=== PATIENT | male | born 1985 | race Caucasian/White ===

== ENCOUNTER 2017-03-07 10:55 | Outpatient (CLI) ==
[2017-03-07 11:23] LABS: BILIRUBIN,URINE Negative (NEGATIVE); KETONES,URINE Negative (NEGATIVE); LEUKOCYTE ESTERASE ,URINE Negative (NEGATIVE); NITRITE,URINE Negative (NEGATIVE); PH,URINE 8.5 (5-9); PROTEIN,URINE Negative (NEGATIVE); URINE, BLOOD Negative (NEGATIVE)
[2017-03-07 11:26] LABS: ADD URINE MICROSCOPIC NO
--- NOTE | 2017-03-07 11:44 | CT ---
EXAM: CT ABDOMEN AND PELVIS HISTORY: Abdominal pain, right flank pain for about 2 months TECHNIQUE: CT abdomen and pelvis without intravenous contrast. Images were reconstructed using 3 mm section thickness. Reformations were prepared. COMPARISON: None FINDINGS: Liver and spleen appear normal within limits of this unenhanced exam. Gallbladder, pancreas and adre nal glands appear normal. There is no hydronephrosis or nephrolithiasis. No perinephric fat strandi ng or evidence of ureteral obstruction. Normal abdominal aorta. Stomach appears normal. Normal appendix. General bowel gas pattern and appearance is normal. Urina ry bladder and prostate are unremarkable. There is no ascites. No ventral abdominal wall hernia. Transitional vertebral body anatomy at the lumbosacral junction. Lung bases are clear. No pneumoperitoneum. IMPRESSION: Kidneys and ureters appear normal. Normal appendix and general bowel gas pattern. No a cute abdominal or pelvic abnormality identified.
== END 2017-03-07 10:56 | disposition home or self-care (01) ==
LOC: RAD 10:55
PROVIDERS: ATTEND Nurse Practitioner Family
DX: R10.9 Unspecified abdominal pain (principal); R30.0 Dysuria
CPT/HCPCS: 74176; 81001

== ENCOUNTER 2017-03-10 08:11 | Outpatient (CLI) ==
--- NOTE | 2017-03-10 10:29 | NM ---
EXAM: Hepatobiliary imaging HISTORY: Generalized abdominal pain COMPARISON: Right upper quadrant ultrasound on 03/01/2017 was unremarkable. TECHNIQUE: Patient was injected 5.1 mCi of technetium 99m Choletec intravenously. Multiple anterior scintigraphic images of the right upper quadrant region of the abdomen were obtained up to 1 hour int erval. Patient was infused 1.5 mcg of cholecystokinin intravenously. Gallbladder ejection fraction was calculated. FINDINGS: There is normal visualization of liver, gallbladder and bile duct. Gallbladder ejection fr action is 98%. IMPRESSION: Normal study
== END 2017-03-10 08:12 | disposition home or self-care (01) ==
LOC: RAD 08:11
PROVIDERS: ATTEND Nurse Practitioner Family
DX: R10.84 Generalized abdominal pain (principal); R11.2 Nausea with vomiting, unspecified; K21.9 Gastro-esophageal reflux disease without esophagitis

== ENCOUNTER 2017-06-21 07:37 | Outpatient (CLI) ==
--- NOTE | 2017-06-21 10:59 | NM ---
EXAM: Hepatobiliary scan HISTORY: Pain. COMPARISON: 03/10/2017. CT 03/07/2017. PROCEDURE: The patient was injected with 5.2 mCi of 99mTc mebrofenin intravenously. Images of the ab domen were obtained at 5 min intervals for 30 minutes. Additional images were obtained 45 minutes an d 1 hour. The patient was then given 8 ounces of Boost after which images of the gallbladder were obt ained to assess gallbladder contraction. FINDINGS: Sequential images demonstrate normal uptake of tracer into the liver. Activity is seen in the intrahepatic biliary ducts at about 5 minutes. The activity appears in the gallbladder at about 20 minutes. Subsequent images demonstrate increasing activity in the gallbladder. Activity first ap pears in the small bowel at 10 minutes. The gallbladder ejection fraction is 63% . IMPRESSION: 1.Normal hepatobiliary scan. 2.The gallbladder ejection fraction is 63% (normal).
== END 2017-06-21 07:38 | disposition home or self-care (01) ==
LOC: RAD 07:37
PROVIDERS: ATTEND Internal Medicine Gastroenterology
DX: R10.84 Generalized abdominal pain (principal)

== ENCOUNTER 2018-01-21 23:33 | Emergency (ER) | payer OTHER ==
[2018-01-21 23:41] VITALS: TEMP 97.4; BMI 24.6
[2018-01-21] MEDS ORDERED: STADOL IM STA (23:53)
[2018-01-21] MEDS ORDERED: PHENERGAN 25 MG/ML VIAL IM STA (23:53)
[2018-01-21] MEDS ORDERED: TORADOL IM STA (23:54)
--- NOTE | 2018-01-22 00:10 | ED.PDOC ---
General ED Provider: Dr. CASANDRA WHELAN-ER Chief Complaint: Headache Stated Complaint: emeli got one of my migraines---emeli had them since i was a teenager Time Seen by Physician: 23:40 Mode of Arrival: Walk-In Information Source: Patient Exam Limitations: No limitations Nursing and Triage Documentation Reviewed and Agree: Yes Does patient meet sepsis criteria?: No System Inflammatory Response Syndrome: Not Applicable Sepsis Protocol: For patient's 13 years and over: Temp is 96.8 and below OR 101 and greater Pulse >90 BPM Resp >20/minute Acutely Altered Mental Status Are patient's symptoms suggestive of a new infection, such as: -Pneumonia -Skin, Soft Tissue -Endocarditis -UTI -Bone, Joint Infection -Implantable Device -Acute Abdominal Infection -Wound Infection -Meningitis -Blood Stream Catheter Infection -Unknown Neurological Complaint Exam - Headache Complaint/Exam Onset: Gradual Duration: 3 hrs Symptoms Are: Still present Timing: Constant Worst Headache Ever: No Initial Severity: Mild Current Severity: Moderate Location: Diffuse, Temporal Character: Reports: Throbbing, Pressure, Migraine Alleviating: Reports: None Associated Signs and Symptoms: Reports: Nausea, Vomiting Related History: Reports: Similar episode. Denies: Recent trauma, Remote trauma Related Surgical History: Reports: None SDH Risk Factors: Reports: Male Temporal Arteritis Risk Factors: Reports: Normal Head CT Within Last 12 Months: Yes Fundoscopic Exam: Present: Normal Findings Papilledema Present: No Temporal Artery Tenderness: Present: None Sinus Tenderness: Present: None TMJ Tenderness: Present: None Glascow Coma Scale (see protocol): 15 Meningeal Signs Positive: No Pain on Passive Flexion-Positive Kernig's: No ROM Limited In: No Limitiations Focal Weakness: Present: None Focal Sensory Loss: Present: None Gait: Normal Nystagmus Present: No Gag Reflex Present: No Romberg Test Positive: No Babinski Sign: Negative Right, Negative Left Heel to Toe Normal: Yes Differential Diagnoses: Migraine Review of Systems - Review Of Systems Constitutional: Reports: No symptoms Eyes: Reports: No symptoms Ears, Nose, Mouth, Throat: Reports: No symptoms Respiratory: Reports: No symptoms Cardiac: Reports: No symptoms GI: Reports: No symptoms, Nausea : Reports: No symptoms Musculoskeletal: Reports: No symptoms Skin: Reports: No symptoms Neurological: Reports: Headache Endocrine: Reports: No symptoms Hematologic/Lymphatic: Reports: No symptoms All Other Systems: Reviewed and Negative Past Medical History - Past Medical History Previously Healthy: Yes Endocrine: Reports: Unknown Cardiovascular: Reports: Unknown Respiratory: Reports: Unknown Hematological: Reports: Unknown Gastrointestinal: Reports: Unknown Genitourinary: Reports: Unknown Neuro/Psych: Reports: Unknown Musculoskeletal: Reports: Unknown Cancer: Reports: Unknown - Surgical History General Surgical History: Reports: Unknown - Family History Family History: Reports: Unknown - Social History Smoking Status: Current every day smoker Hx Substance Use: Yes (marijuana) Alcohol Screening: None - Immunizations Tetanus Shot up to Date: Yes Physical Exam - Physical Exam Appearance: Well-appearing, No pain distress, Well-nourished Pain Distress: Moderate Eyes: JORGE, EOMI, Conjunctiva clear ENT: Ears normal, Nose normal, Oropharynx normal Neck: Supple Respiratory: Airway patent, Breath sounds clear, Breath sounds equal, Respirations nonlabored Cardiovascular: RRR, Pulses normal, No rub, No murmur GI/: Soft, Nontender, No masses, Bowel sounds normal, No Organomegaly Musculoskeletal: Normal strength, ROM intact, No edema, No calf tenderness Skin: Warm Neurological: Sensation intact, Motor intact, Reflexes intact, Cranial nerves intact, Alert, Oriented Psychiatric: Affect appropriate, Mood appropriate Re-Evaluation - Re-Evaluation Time of Re-Evaluation: 00:41 Status: Improved (sleeping) Vital Signs Stable: Yes Pain Level: 0 Appearance: NAD Lungs: Clear Skin: Warm and Dry Neuro: Alert and Oriented X3 CV: RRR Critical Care Note - Critical Care Note Total Time (mins): 0 Course - Course Orders, Labs, Meds: Orders Category Date Time Status Butorphanol Tartrate [Stadol] MEDS 01/21/18 23:53 Discontinued 2 mg IM ONCE STA Ketorolac Tromethamine [Toradol] MEDS 01/21/18 23:54 Discontinued 60 mg IM ONCE STA Promethazine HCl [Phenergan 25 mg/ml Vial] MEDS 01/21/18 23:53 Discontinued 25 mg IM ONCE STA Medications Discontinued Medications Generic Name Dose Route Start Last Admin Trade Name Freq PRN Reason Stop Dose Admin Butorphanol Tartrate 2 mg 01/21/18 23:53 01/21/18 23:59 Stadol IM 01/21/18 23:54 2 mg ONCE STA Administration Ketorolac Tromethamine 60 mg 01/21/18 23:54 01/21/18 23:58 Toradol IM 01/21/18 23:55 60 mg ONCE STA Administration Promethazine HCl 25 mg 01/21/18 23:53 01/21/18 23:59 Phenergan 25 Mg/Ml Vial IM 01/21/18 23:54 25 mg ONCE STA Administration Vital Signs: Temp Pulse Resp BP Pulse Ox 01/21/18 23:34 97.4 F L 77 20 130/80 98 Departure - Departure Time of Disposition: 00:42 Disposition: HOME SELF-CARE Discharge Problem: Migraine Qualifiers: Migraine type: unspecified Status migrainosus presence: without status migrainosus Intractability: not intractable Qualified Code(s): G43.909 - Migraine, unspecified, not intractable, without status migrainosus Condition: Good Pt referred to PMD for follow-up: Yes IPMP verified?: No Additional Instructions: f/u pcp Allergies/Adverse Reactions: Allergies codeine Allergy (Unknown, Unverified 02/28/17 10:21) Unknown Home Medications: Ambulatory Orders Hydrocodone/Acetaminophen [Hydrocodon-Acetaminophn 10-325] 1 each PO BID PRN tab-cap 03/07/17 Disposition Discussed With: Patient, Family
[2018-01-22 00:46] VITALS: BP 111/69
== END 2018-01-22 00:55 | disposition home or self-care (01) ==
LOC: ED 23:33
DX: R51 Headache (principal); R11.2 Nausea with vomiting, unspecified; G43.909 Migraine, unspecified, not intractable, without status migrainosus
CPT/HCPCS: 96372; 99282

== ENCOUNTER 2018-06-23 08:17 | Emergency (ER) ==
[2018-06-23 08:23] VITALS: BP 132/79; TEMP 98; BMI 21.9
--- NOTE | 2018-06-23 09:04 | ED.PDOC ---
General ED Provider: Dr. CASANDRA NEWSOME Chief Complaint: Scrotal Pain Stated Complaint: Scrotal and Testicular pain. was having having intercourse with his at around 2 AM this date during which he felt as if he "hit her pelvic bone"and suddenly developed onset of severe, excruciating pain in his rt scrotum and testicle. Constantly holding his scrotum states feels as if his testicle are pulling up inside of him. Denies penile pain. Has difficulty releasing his hand from the scrotum due to the resultantant worsening intensity of pain. States he notes his sctotal skin color seem to be changing colors getting darker. Time Seen by Physician: 08:29 Mode of Arrival: Walk-In Information Source: Patient Exam Limitations: No limitations Nursing and Triage Documentation Reviewed and Agree: Yes Does patient meet sepsis criteria?: No System Inflammatory Response Syndrome: Not Applicable Sepsis Protocol: For patient's 13 years and over: Temp is 96.8 and below OR 101 and greater Pulse >90 BPM Resp >20/minute Acutely Altered Mental Status Are patient's symptoms suggestive of a new infection, such as: -Pneumonia -Skin, Soft Tissue -Endocarditis -UTI -Bone, Joint Infection -Implantable Device -Acute Abdominal Infection -Wound Infection -Meningitis -Blood Stream Catheter Infection -Unknown Complaint Exam - Complaint/Exam Patient Complains of: Reports: Scrotal pain, Scrotal swelling, Groin pain Onset/Duration: 6 hrs Symptoms Are: Worse Timing: Constant Initial Severity: Moderate Current Severity: Severe Location of Pain: Reports: Right, Scrotum, Testicle, Suprapubic (Lateral Scrotal region ) Character: Reports: Constant pressure (Unable to void) Aggravating: Reports: Palpation Alleviating: Reports: Scrotal elevation Associated Signs and Symptoms: Reports: Back pain, Nausea, Decreased urine output, Scrotal pain, Scrotal swelling Testicular Torsion Risk Factors: Denies: Prior torsion, Undescended testes Surgical Obstruction Risk Factors: Reports: None Related Surgical History: Reports: None Abdominal Findings: Present: None Genitalia Exam: Present: Testes asymmetrical, Testes tender, Scrotal swelling, Penile swelling (at base) Differential Diagnoses: Testicular Torsion Review of Systems - Review Of Systems Constitutional: Reports: No symptoms Eyes: Reports: No symptoms Ears, Nose, Mouth, Throat: Reports: No symptoms Respiratory: Reports: No symptoms Cardiac: Reports: No symptoms GI: Reports: No symptoms : Reports: No symptoms Musculoskeletal: Reports: No symptoms Skin: Reports: No symptoms Neurological: Reports: No symptoms Endocrine: Reports: No symptoms Hematologic/Lymphatic: Reports: No symptoms All Other Systems: Reviewed and Negative Past Medical History - Past Medical History Previously Healthy: Yes Endocrine: Reports: Unknown Cardiovascular: Reports: Unknown Respiratory: Reports: Unknown Hematological: Reports: Unknown Gastrointestinal: Reports: Unknown Genitourinary: Reports: Unknown Neuro/Psych: Reports: Unknown Musculoskeletal: Reports: Unknown Cancer: Reports: Unknown - Surgical History General Surgical History: Reports: Unknown - Family History Family History: Reports: Unknown - Social History Smoking Status: Current every day smoker Hx Substance Use: Yes (marijuana) Alcohol Screening: None Physical Exam - Physical Exam Appearance: Ill-appearing Ill-appearing: Moderate Pain Distress: Severe Eyes: JORGE, EOMI, Conjunctiva clear ENT: Ears normal, Nose normal, Oropharynx normal Neck: Supple Respiratory: Airway patent, Breath sounds clear, Breath sounds equal, Respirations nonlabored Cardiovascular: RRR, Pulses normal, No rub, No murmur GI/: Soft, Nontender, No masses, Bowel sounds normal, No Organomegaly Musculoskeletal: Normal strength, ROM intact, No edema, No calf tenderness Skin: Warm (multiple tatoos), Dry, Normal color Neurological: Sensation intact, Motor intact, Reflexes intact, Cranial nerves intact, Alert, Oriented Psychiatric: Affect appropriate, Mood appropriate, Anxious Re-Evaluation - Re-Evaluation Time of Re-Evaluation: 09:50 Status: Improved (But still tremendous pressure ) Vital Signs Stable: Yes Pain Level: 7/10 was 10 /10 upon admit Appearance: NAD Lungs: Clear Skin: Warm and Dry Neuro: Alert and Oriented X3 CV: RRR Physician Notification - Case Discussed Physician Notified: Dr Hagan [facility], Dr Pyle ER [facility]; Discussed and Dr Hagan accepted. Time of Notification: 09:16 (Send to ER [facility] for eval and ultrasound; Dr Pyle advised at 0920 and accepted to ER) Critical Care Note - Critical Care Note Total Time (mins): 60 Course - Course Hematology/Chemistry: 06/23/18 09:15 Orders, Labs, Meds: Lab Review 06/23/18 06/23/18 09:03 09:15 WBC 9.86 RBC 5.05 Hgb 15.6 Hct 43.9 MCV 86.9 MCH 30.9 MCHC 35.5 H RDW Coeff of Johnny 12.8 Plt Count 328 Immature Gran % (Auto) 0.2 Neut % (Auto) 77.3 Lymph % (Auto) 15.8 [place] % (Auto) 5.9 Eos % (Auto) 0.2 Baso % (Auto) 0.6 Immature Gran # (Auto) 0.0 Neut # (Auto) 7.6 H Lymph # (Auto) 1.6 [place] # (Auto) 0.6 Eos # (Auto) 0.0 Baso # (Auto) 0.1 Urine Color Yellow Urine Clarity Clear Urine pH 5.5 Ur Specific [place] >=1.030 Urine Protein 2+ Urine Glucose (UA) Negative Urine Ketones 3+ Urine Blood Negative Urine Nitrite Negative Urine Bilirubin 1+ Urine Urobilinogen 1.0 Ur Leukocyte Esterase Negative Urine Microscopic RBC 0-2 Urine Microscopic WBC 0-2 Ur Squamous Epith Cells 0-2 Urine Bacteria Trace Orders Category Date Time Status IV [ED IV/MEDIPORT/POWERPORT] .ONCE EMERGENCY 06/23/18 09:09 Active CBC W/ AUTO DIFF Stat LAB 06/23/18 09:15 Completed CMP [COMPREHENSIVE METABOLIC PANEL] Stat LAB 06/23/18 09:15 Received UA [URINALYSIS C & S IF INDICATED] Stat LAB 06/23/18 09:03 Completed URINE DRUG SCREEN (RAPID FOR ED) [DRUG SCREEN, URINE, LAB 06/23/18 09:03 Received RAPID] Stat 0.9 % Sodium Chloride [Saline Flush] MEDS 06/23/18 09:10 Active 1 syr IVF PRN PRN Hydromorphone HCl [Dilaudid 1 mg/ml Syringe] MEDS 06/23/18 09:27 Discontinued 1 mg IVP ONCE STA Lorazepam Inj [Ativan] MEDS 06/23/18 09:32 Discontinued 1 mg IVP ONCE STA Ondansetron HCl/Pf [Zofran 4 mg/2 ml] MEDS 06/23/18 09:28 Discontinued 4 mg IVP ONCE STA Sodium Chloride 0.9% [Sodium Chloride] 1,000 ml MEDS 06/23/18 09:09 Active IV BOLUS Medications Generic Name Dose Route Start Last Admin Trade Name Freq PRN Reason Stop Dose Admin Sodium Chloride 1,000 mls @ 500 mls/hr 06/23/18 09:09 Sodium Chloride IV 06/23/18 11:08 BOLUS STA Sodium Chloride 1 syr 06/23/18 09:10 Saline Flush IVF PRN PRN To flush IV Discontinued Medications Generic Name Dose Route Start Last Admin Trade Name Nava PRN Reason Stop Dose Admin Hydromorphone HCl 1 mg 06/23/18 09:27 06/23/18 09:33 Dilaudid 1 Mg/Ml Syringe IVP 06/23/18 09:28 1 mg ONCE STA Administration Lorazepam 1 mg 06/23/18 09:32 Ativan IVP 06/23/18 09:33 ONCE STA Ondansetron HCl 4 mg 06/23/18 09:28 06/23/18 09:33 Zofran 4 Mg/2 Ml IVP 06/23/18 09:29 4 mg ONCE STA Administration Vital Signs: Temp Pulse Resp BP Pulse Ox 06/23/18 08:17 98.0 F 117 H 20 132/79 95 Departure - Departure Time of Disposition: 10:00 Disposition: TSF SHORT-TRM HOSP Discharge Problem: Testicular/scrotal pain, Right testicular torsion, Methamphetamine abuse Instructions: Scrotal Pain (ED), Methamphetamine Abuse (ED) Condition: Stable Pt referred to PMD for follow-up: No IPMP verified?: No Additional Instructions: Advised of findings and impression; Transfer to [facility] for consult and additional evaluation Allergies/Adverse Reactions: Allergies codeine Allergy (Unknown, Unverified 02/28/17 10:21) Unknown Penicillins Adverse Reaction (Verified 06/23/18 08:19) Disposition Discussed With: Patient, Family
[2018-06-23] MEDS ORDERED: SODIUM CHLORIDE 1,000 ML IV STA (09:09)
[2018-06-23] MEDS ORDERED: DILAUDID 1 MG/ML SYRINGE IM STA (09:11)
[2018-06-23] MEDS ORDERED: ATIVAN IVP STA ×3 (09:11→09:32)
[2018-06-23] MEDS ORDERED: DILAUDID 1 MG/ML SYRINGE IVP STA (09:27)
[2018-06-23] MEDS ORDERED: ZOFRAN 4 MG/2 ML IVP STA (09:28)
== END 2018-06-23 10:11 | disposition short-term general hospital (02) ==
LOC: ED 08:17
DX: N44.00 Torsion of testis, unspecified (principal); F15.10 Other stimulant abuse, uncomplicated; N50.819 Testicular pain, unspecified; F17.210 Nicotine dependence, cigarettes, uncomplicated
CPT/HCPCS: 36415; 80053; 80306; 81001; 85025; 96361; 96374; 96375; 99285

== ENCOUNTER 2018-06-23 10:20 | Outpatient (CLI) ==
[2018-06-23 08:23] VITALS: BMI 21.9
== END 2018-06-23 11:25 | disposition short-term general hospital (02) ==
LOC: AMBL 10:20
PROVIDERS: ATTEND Emergency Medicine
DX: N50.819 Testicular pain, unspecified (principal)